=== PATIENT | male | born 1965 | race African-American/Black ===

== ENCOUNTER 2016-12-25 12:15 | Emergency (ER) | payer MEDICARE, OTHER ==
[~2016-12-25] VITALS: Ht 172.7 cm; Wt 75.0 kg
[~2016-12-25 12:15] MED LIST: AMLO-147 PO; HYDR-906 PO; LISI10TA2 PO; VIT D PO
[2016-12-25 12:22] VITALS: Ht 172.7 cm; Wt 75.0 kg
--- NOTE | 2016-12-25 12:59 | ERD ---
ER Documentation Chief Complaint Date/Time DATE: 12/25/16 TIME: 12:57 Chief Complaint lower ext cramping, diaphoretic, dizziness x1week worse today HPI 51-year-old male with history of hypertension and osteoarthritis who is status post a right total knee arthroplasty 07/2016 ambulatory to the ED complaining of a one-week history of generalized weakness lower extremity cramping and paresthesias. He denies headache or neck pain. No visual changes, focal weakness or numbness. Complains of sometimes feeling lightheaded but denies dizziness or vertiginous symptoms. No chest pain or palpitations. No shortness of breath or cough. Denies abdominal pain, nausea, vomiting, diarrhea or constipation. No hematemesis, hematochezia or melanotic stools. Denies dysuria, polyuria, hematuria or flank pain. No URI symptoms, odynophagia or rhinorrhea. No heat or cold intolerance. No anorexia or weight loss. No fevers or chills. ROS All systems reviewed and are negative except as per history of present illness. Medications Home Meds Discontinued Reported Medications Lisinopril* (Lisinopril*) 10 Mg Tablet, 10 MG PO DAILY, #30 TAB 07/06/16 [Vit D] No Conflict Check, PO DAILY 06/27/14 Discontinued Scripts Hydrocodone/Acetaminophen ([place] 5-325 Tablet) 1 Each Tablet, 1 EACH PO Q8 for SEVERE PAIN LEVEL 7-10, #30 TAB Prov:DEE DEE DOMINGUEZ MD 07/12/16 Amlodipine Besylate* (Amlodipine Besylate*) 10 Mg Tablet, 10 MG PO DAILY for hypertension, #30 TAB Prov:DEE DEE DOMINGUEZ MD 07/12/16 Allergies Allergies: Coded Allergies: No Known Allergy (Unverified , 12/25/16) PMhx/Soc Reviewed in chart. As per HPI. History of Surgery: Yes (see EMR) Anesthesia Reaction: No Hx Neurological Disorder: No Hx Respiratory Disorders: No Hx Cardiac Disorders: Yes (HTN) Hx Psychiatric Problems: No Hx Miscellaneous Medical Probl: Yes (see EMR) Hx Alcohol Use: No Hx Substance Use: No Hx Tobacco Use: No FmHx Diabetes but no stroke or cancer Physical Exam Vitals Vital Signs Date Time Temp Pulse Resp B/P Pulse Ox O2 Delivery O2 Flow Rate FiO2 12/25/16 13:49 98.1 79 22 149/93 98 Room Air 12/25/16 12:30 98.1 85 22 129/83 99 Room Air 12/25/16 12:22 98.1 81 22 81/48 99 Physical Exam Const: Alert, anxious. Head: Atraumatic Eyes: Normal Conjunctiva. Pupils equal reactive light, extraocular movements are intact ENT: Normal External Ears, Nose and Mouth. Neck: Full range of motion. Nontender. No meningismus. Carotids are 2+ bilaterally without bruits. Resp: Clear to auscultation bilaterally. No rales rhonchi or wheezes. Cardio: Regular rate and rhythm, no murmurs Abd: Soft, non tender, non distended. Normal bowel sounds. No masses or abnormal pulsations. No rebound or guarding. Skin: No petechiae or rashes Back: No midline or flank tenderness Ext: No cyanosis, or edema. Mild calf tenderness bilaterally. Pulses 4+ in all extremities. Neur: Awake and alert. CN II-XII are grossly intact. mtor and sensory are equal bilaterally. Psych: Appears anxious but not depressed. Result Diagram: 12/25/16 1255 12/25/16 1255 Results 24 hrs Laboratory Tests Test 12/25/16 12:41 12/25/16 12:55 Bedside Glucose 84mg/dL White Blood Count 4.310^3/ul Red Blood Count 6.0010^6/ul Hemoglobin 16.5g/dl Hematocrit 50.8% Mean Corpuscular Volume 84.7fl Mean Corpuscular Hemoglobin 27.5pg Mean Corpuscular Hemoglobin Concent 32.5g/dl Red Cell Distribution Width 12.6% Platelet Count 60695^3/UL Mean Platelet Volume 9.6fl Neutrophils % 50.0% Lymphocytes % 33.2% Monocytes % 14.0% Eosinophils % 1.4% Basophils % 0.9% Nucleated Red Blood Cells % 0.0/100WBC Neutrophils # 2.110^3/ul Lymphocytes # 1.410^3/ul Monocytes # 0.610^3/ul Eosinophils # 0.110^3/ul Basophils # 0.010^3/ul Nucleated Red Blood Cells # 0.010^3/ul Prothrombin Time 13.3Sec Prothrombin Time Ratio 1.0 INR International Normalized Ratio 1.01 Activated Partial Thromboplast Time 34.2Sec Sodium Level 135mmol/L Potassium Level 3.7mmol/L Chloride Level 93mmol/L Carbon Dioxide Level 26mmol/L Anion Gap 20 Blood Urea Nitrogen 17mg/dl Creatinine 1.33mg/dl Glucose Level 128mg/dl Calcium Level 9.1mg/dl Total Bilirubin 0.9mg/dl Direct Bilirubin 0.00mg/dl Indirect Bilirubin 0.9mg/dl Aspartate Amino Transf (AST/SGOT) 24IU/L Alanine Aminotransferase (ALT/SGPT) 24IU/L Alkaline Phosphatase 101IU/L Troponin I < 0.012ng/ml Total Protein 8.1g/dl Albumin 4.0g/dl Globulin 4.10g/dl Albumin/Globulin Ratio 0.97 Thyroid Stimulating Hormone (TSH) 1.910MIU/L EKG: Time: 13:01. Sinus rhythm with sinus arrhythmia. Ventricular rate 77, normal MI and QRS intervals. No acute ST segment elevation or depression. No axis deviation or ectopy. EP Impression: Normal EKG PROCEDURE: Chest x-ray CLINICAL INDICATION: Chest pain TECHNIQUE: Chest single view COMPARISON: None FINDINGS: The heart is normal in size. The pulmonary vessels are normal in caliber. The lungs are clear. The costophrenic angles are sharp. The visualized bony thorax is unremarkable. IMPRESSION: No acute cardiopulmonary disease. RPTAT: HH .Travis Quispe MD, Date Time Electronically viewed and signed by .Travis Quispe MD, on 12/25/2016 13:43 .W/ PROCEDURE: Ultrasound of the bilateral lower extremity venous system. CLINICAL INDICATION: Bilateral leg pain and swelling, deep venous thrombosis TECHNIQUE: Fisher scale with and without compression, color doppler, spectral doppler of the venous system of the bilateral lower extremities was performed. Venous augmentation maneuvers were utilized. COMPARISON: No prior studies are available for comparison. FINDINGS: RIGHT: Common femoral vein: Patent. Femoral vein: Patent. Popliteal vein: Patent. Calf veins: Patent. No soft tissue abnormalities are identified. LEFT: Common femoral vein: Patent. Femoral vein: Patent. Popliteal vein: Patent. Calf veins: Patent. No soft tissue abnormalities are identified. IMPRESSION: No evidence of a deep vein thrombosis within the bilateral lower extremities. RPTAT: AADD .Gerry Vail MD, MD Date Time Electronically viewed and signed by .Gerry Vail MD, on 12/25/2016 14:25 .B/ Procedures/MDM DOCUMENTS REVIEWED: ED nurse, prior records MEDICAL DECISION MAKIN-year-old male with history of hypertension and osteoarthritis who is status post a right total knee arthroplasty 07/2016 ambulatory to the ED complaining of a one-week history of generalized weakness lower extremity cramping and paresthesias. No headache, focal deficit or other indication for neuroimaging. Pulses are 4+ in all extremities. No signs or symptoms of arterial insufficiency, claudication or aortic dissection. Venous Dopplers negative for DVT. No electrolyte abnormalities or hypoglycemia. Abdominal exam is benign without rebound, guarding or signs of peritonitis. No fever, leukocytosis or signs of an occult infectious process. No back pain, focal weakness; spinal epidural abscess and cauda equina are unlikely. Patient presents with generalized weakness of uncertain etiology. A supratentorial component including but not limited to anxiety and depression is not ruled out. Occult neoplasm is possible. No hypothyroidism. In the absence of signs of severe illness, symptomatic treatment at this time is appropriate. Stable for discharge precautionary instructions and outpatient follow-up as counseled. Patient understands that the etiology of his symptoms are not established and urgent, outpatient follow-up is mandatory. Counseled patient regarding diagnostic workup, diagnosis and need for followup. Understands to return to ED if symptoms recur, worsen or any other concerns. Departure Diagnosis: Primary Impression: Weakness generalized Additional Impression: Essential hypertension Condition: Stable ENA LOMAX MD Dec 25, 2016 12:59
[2016-12-25 13:06] LABS: ADD SCAN DIFF NO; BASOPHILS % 0.9 % (0.0-2.0); EOSINOPHILS # 0.1 10^3/ul (0.0-0.5); EOSINOPHILS % 1.4 % (0.0-7.0); HEMATOCRIT 50.8 % (42.0-52.0); HEMOGLOBIN 16.5 g/dl (14.0-18.0); LYMPHOCYTES # 1.4 10^3/ul (0.8-2.9); LYMPHOCYTES % 33.2 % (15.0-51.0); MEAN CORPUSCULAR HEMOGLOBIN 27.5 pg (29.0-33.0); MEAN CORPUSCULAR HGB CONC 32.5 g/dl (32.0-37.0); MEAN CORPUSCULAR VOLUME 84.7 fl (82.0-101.0); MEAN PLATELET VOLUME 9.6 fl (7.4-10.4); MONOCYTE # 0.6 10^3/ul (0.3-0.9); NEUTROPHIL # 2.1 10^3/ul (1.6-7.5); PLATELET COUNT 304 10^3/UL (140-415); RED CELL DISTRIBUTION WIDTH 12.6 % (11.5-14.5); WHITE BLOOD COUNT 4.3 10^3/ul (4.8-10.8)
[2016-12-25 13:14] LABS: CHLORIDE 93 mmol/L (97-110); POTASSIUM 3.7 mmol/L (3.5-5.1); SODIUM 135 mmol/L (135-144)
[2016-12-25 13:15] LABS: INR 1.01; PROTIME 13.3 Sec (12.2-14.2)
[2016-12-25 13:16] LABS: ANION GAP 20 (8-16); ASPARTATE AMINO TRANSFERASE 24 IU/L (15-46); BILIRUBIN,INDIRECT 0.9 mg/dl (0-1.1); BILIRUBIN,TOTAL 0.9 mg/dl (0.2-1.3); CARBON DIOXIDE 26 mmol/L (21-31); CREATININE 1.33 mg/dl (0.61-1.24); PARTIAL THROMBOPLASTIN TIME 34.2 Sec (25.0-35.0)
[2016-12-25 13:17] LABS: ALANINE AMINOTRANSFERASE 24 IU/L (13-69); ALBUMIN/GLOBULIN RATIO 0.97; ALKALINE PHOSPHATASE 101 IU/L (42-121); BLOOD UREA NITROGEN 17 mg/dl (7-20); CALCIUM 9.1 mg/dl (8.4-10.2); GLUCOSE 128 mg/dl (70-220); TOTAL PROTEIN 8.1 g/dl (6.1-8.1)
[2016-12-25 13:29] LABS: TROPONIN-I < 0.012 ng/ml (0.00-0.12)
--- NOTE | 2016-12-25 13:44 | RADRPT ---
PROCEDURE: Chest x-ray CLINICAL INDICATION: Chest pain TECHNIQUE: Chest single view COMPARISON: None FINDINGS: The heart is normal in size. The pulmonary vessels are normal in caliber. The lungs are clear. Th e costophrenic angles are sharp. The visualized bony thorax is unremarkable. IMPRESSION: No acute cardiopulmonary disease. RPTAT: HH .Travis Quispe MD, Date Time Electronically viewed and signed by .Travis Quispe MD, MD on 12/25/2016 13:43 .W/
--- NOTE | 2016-12-25 14:25 | RADRPT ---
PROCEDURE: Ultrasound of the bilateral lower extremity venous system. CLINICAL INDICATION: Bilateral leg pain and swelling, deep venous thrombosis TECHNIQUE: Fisher scale with and without compression, color doppler, spectral doppler of the venous system of the bilateral lower extremities was performed. Venous augmentation maneuvers were utilized . COMPARISON: No prior studies are available for comparison. FINDINGS: RIGHT: Common femoral vein: Patent. Femoral vein: Patent. Popliteal vein: Patent. Calf veins: Patent. No soft tissue abnormalities are identified. LEFT: Common femoral vein: Patent. Femoral vein: Patent. Popliteal vein: Patent. Calf veins: Patent. No soft tissue abnormalities are identified. IMPRESSION: No evidence of a deep vein thrombosis within the bilateral lower extremities. RPTAT: AADD .Gerry Vail MD, MD Date Time Electronically viewed and signed by .Gerry Vail MD, on 12/25/2016 14:25 .B/
[2016-12-25] MEDS ORDERED: POLY17PO6 PO (16:51)
[2016-12-25] MEDS ORDERED: DOCU-144 PO (16:51)
[2016-12-25 16:55] VITALS: BP 131/80; PULSE 79; RESP 20; TEMP 98.1
== END 2016-12-25 17:15 | disposition home or self-care (01) ==
LOC: E/R 12:15
DX: R53.1 Weakness (principal); I10 Essential (primary) hypertension; R07.9 Chest pain, unspecified; R40.2142 Coma scale, eyes open, spontaneous, at arrival to emergency department; R40.2362 Coma scale, best motor response, obeys commands, at arrival to emergency department; R40.2252 Coma scale, best verbal response, oriented, at arrival to emergency department; Z96.651 Presence of right artificial knee joint
CPT/HCPCS: 36415; 71010; 80053; 82962; 84443; 84484; 85025; 85610; 85730; 93005; 93970